=== PATIENT | female | born 1985 | race Caucasian/White ===

== ENCOUNTER 2019-12-13 08:55 | Day surgery (SDC) | payer OTHER ==
[~2019-12-13] VITALS: Ht 160 cm; Wt 44.0 kg
--- NOTE | 2019-12-13 10:13 | NUR ---
12/13/19 1013 Leonor Colon 1005 PATIENT ARRIVES TO PACU UNRESPONSIVE TO PAIN. RESP EVEN AND UNLABORED, ORAL AIRWAY IN PLACE, REQUIRES JAW THRUST BY RN. 1010 PATIENT CONTINUES TO BE UNRESPONSIVE TO PAIN. RESP EVEN AND UNLABORED, MASK CONTINUED AT [address]ERS[address] ORAL AIR[address]AY IN PLACE. NO LONGER REQUIRES JAW THRUST BY RN.
[2019-12-13] MEDS ORDERED: ACETAMINOPHEN500 MG PO (10:18)
[2019-12-13] MEDS ORDERED: IBUPROFEN600 MG PO (10:18)
[2019-12-13] MEDS ORDERED: OXYCODON-ACETA1 EAC2 PO (10:18)
--- NOTE | 2019-12-13 10:46 | NUR ---
PATIENT BACK TO ROOM 1040 BEDSIDE REPORT FROM LI VERDE. DRESSING TO RIGHT AXILLARY IS ACTICOAT WITH SMALL AMOUNT OF SHADOWING. PATIENT REPORTS NO PAIN OR NAUSEA. PROVIDED ICE WATER AND CRACKERS AND APPLESAUCE. PATIENT SITTING UP IN BED, APPEARS TO HAVE THE HICCUPS. NO OTHER NEEDS AT THIS TIME. CALL LIGHT WITHIN REACH.
--- NOTE | 2019-12-13 12:13 | NUR ---
PATIENT UP TOLERATING AMBULATING WELL, STATES " I JUST FEEL A LITTLE TIRED". VSS. NO NEW DRAINAGE TO SURGICAL SITE DRESSING. PROVIDED DISCHARGE INSTRUCTION. ANSWERED QUESTIONS AND CONCERNS. PROVIDED WHEELCHAIR RIDE TO FRONT. PATIENT TRANSFERED WELL TO CAR WITH . SCRIPT IN HUSBANDS HAND.
--- NOTE | 2019-12-14 14:49 | OR ---
[facility] [address] [place], [place] [address] Signed DATE OF OPERATION: 12/13/2019 SURGEON: Lisandra Michelel MD PREOPERATIVE DIAGNOSES: Mediastinal cervical and right axillary adenopathy suspicious for malignancy. POSTOPERATIVE DIAGNOSES: Mediastinal cervical and right axillary adenopathy suspicious for malignancy. PROCEDURE: Excision of deep right axillary lymph node (4 cm). ANESTHESIA: General LMA; [place] CRNA and local 10 mL of 0.25% Marcaine with epinephrine. INDICATION: This 34-year-old white woman is a patient of LILIANE Stoddard. She has been found to have significant axillary, cervical, and ultimately mediastinal adenopathy. CT scan confirms these findings. She has no "B" symptoms (night sweats, etc), no weight loss and no known family history of lymphoma. She is admitted at this time to undergo right axillary lymph node biopsy to assist in diagnosis. The risks of bleeding, infection, need for drain, axillary swelling or limbs swelling were all reviewed. She understands and wished to proceed. FINDINGS: The lymph node was easily identified. It was mobile and was approximately 4 cm in size. It was smooth and noninfiltrative. Sectioning the lymph node showed findings highly suggestive of lymphoma. DESCRIPTION OF PROCEDURE: The patient was brought to the operating room and given a general LMA type anesthetic. Preoperative antibiotic Ancef was given. Sequential compression device stockings were used and heparin subcutaneously administered. In the supine position with the right arm abducted, the axilla, chest wall, neck and so forth were prepared with a chlorhexidine solution. Palpation of the axilla demonstrated a large dominant lymph node in the apex of the axilla. A transverse incision was made in the axillary skin lateral to the pectoralis muscle. Dissection carried through the subcutaneous tissue with electrocautery and blunt dissection. With various manipulations, the lymph node was easily identified and mobilized and resected primarily with electrocautery. If there Electronically Signed By: LISANDRA MICHELLE MD 12/14/19 1449 PATIENT NAME: MARYA GREGORY OPERATIVE REPORT DATE OF : [birth year] REPORT #: [id number] PHYSICIAN: LISANDRA MICHELLE MD PCP: GERBER KEARNEY PA-C REPORT IS CONFIDENTIAL AND NOT TO BE RELEASED WITHOUT AUTHORIZATION [address] [address] Signed was no extensive disruption of surrounding soft tissue. The lymph node was bivalved on the back table and found to have appearance typical of lymphoma. Irrigation was undertaken. The wound was closed in layers with interrupted 2-0 Vicryl and running subcuticular 3-0 Vicryl for the skin. Steri-Strips were applied as was a silver sponge dressing. A 10 mL of 0.25% Marcaine with epinephrine had been injected locally for postoperative analgesic benefit. She was extubated and transferred from the operating room to recovery room in good condition. BLOOD LOSS: Minimal. MD SANKET Mackey/RUSSELL /[id number] cc: LILIANE Stoddard Copies: ~ Electronically Signed By: LISANDRA MICHELLE MD 12/14/19 1449 PATIENT NAME: MARYA GREGORY OPERATIVE REPORT DATE OF : [birth year] REPORT #: [id number] PHYSICIAN: LISANDRA MICHELLE MD PCP: GERBER KEARNEY PA-C REPORT IS CONFIDENTIAL AND NOT TO BE RELEASED WITHOUT AUTHORIZATION
--- NOTE | 2019-12-19 14:26 | PATH ---
[facility] [address] [facility] [place] [place] [address] Signed SPECIMEN(S): B B T CELL FLOW ONLY SPECIMEN(S): A RIGHT AXILLARY LYMPH NODE SPECIMEN SOURCE: A. RIGHT AXILLARY LYMPH NODE B. B T CELL FLOW ONLY CLINICAL HISTORY: Mediastinal lymphadenopathy. Right axillary lymph node tissue biopsy, 3.3 x 2.1 x 1.5. FINAL PATHOLOGIC DIAGNOSIS: A. Lymph node, right axilla, excisional biopsy: - Classic Hodgkin lymphoma, nodular sclerosis type. - See Comment. COMMENT: Sections demonstrate a lymph node with architectural effacement by vague nodules of mature-apperaing lymphocytes and scattered large, atypical tumor cells with vesicular nuclei, prominent nucleoli, and occasional binucleation, resembling Lei-Carmel cells. Fibrous bands are present coursing through the node parenchyma. Rare areas of necrosis are seen. Immunohistochemical stains (with appropriately staining controls) were performed and demonstrate the following: CD20: Negative in tumor cells CD45: Negative in tumor cells CD3: Negative in tumor cells, positive for T cell rosettes around tumor cells CD30: Postive in tumor cells CD15: Positive in tumor cells [place]-5: Weak positivity in tumor cells. The combined morphologic and immunophenotypic profile is compatible with classic Hodgkin lymphoma, nodular sclerosis type. As part of [facility]' Quality Improvement Program, this case was reviewed by another member of our pathology staff, Dr. Malina Delgado, Board Certified Hematopathologist. The results were discussed with Dr. Self on 12/19/2019. NAL:cml:C NR No evidence of non-Hodgkin lymphoma is detected in this specimen. Histologic correlation is needed for full interpretation and to evaluate for tumors not fully characterized by flow cytometry PATIENT NAME: MARYA GREGORY PATHOLOGY DATE OF : [birth year] REPORT #: [id number] PHYSICIAN: JEET PATHOLOGY PCP: GERBER KEARNEY PA-C REPORT IS CONFIDENTIAL AND NOT TO BE RELEASED WITHOUT AUTHORIZATION [facility] [address] [place], [place] [address] Signed analysis, including Hodgkin lymphoma and certain non-Hodgkin lymphoma, especially large cell lymphoma, and non-hematopoietic tumors. FLOW CYTOMETRY ANALYSIS: FLOW DIFFERENTIAL (% Total CD45 vs. SSC gating): Lymphoid 95%; Debris 4%. Cell Count: 2.4 x 10*3/uL. Total Viability: 97% POPULATION ANALYSIS: LYMPHOID CELLS: The lymphocyte gate comprises 95% of total events and includes 64% T-cells with a CD4:CD8 ratio of 8.1:1 and normal english T-cell antigen expression. 37% of lymphocytes are polyclonal B-cells with a kappa:lambda ratio of 1.4:1. The remainders are NK-cells. PLASMA CELLS: A significant plasma cell population is not detected in the neg-dimCD45/CD38 screening gate. ANTIBODIES USED: KAPPA, LAMBDA, CD20, CD10, CD19, CD23, CD38, FMC7, CD16, CD56, CD8, CD5, CD2, CD4, CD7, CD3, CD45, 7AAD: TOTAL ANTIBODIES USED: 18. DKW FLOW CYTOMETRY: Flow cytometry analysis, right axillary lymph node: - No atypical B or T-cell population is detected. See Comment. MICROSCOPIC EXAMINATION: Histologic sections of all submitted blocks are examined by light microscopy. These findings, together with the gross examination, support the pathologic diagnosis. GROSS DESCRIPTION: The specimen, labeled "SR," and designated on the requisition " right axilla lymph node tissue," is received in formalin and consists of a previously sectioned yellow-wakefield possible lymph node (3.6 x 1.9 x 1.8 cm) the skin surrounding yellow-wakefield adipose and soft tissue. The specimen is serially sectioned to reveal a pink-wakefield, slightly lobulated cut surface. The specimen is submitted entirely in cassettes (A1-A6). Per the requisition "received fresh is a previously incised 3.3 x 2.1 x 1.5 cm lymph node. Specimen is sectioned. Rep section submitted in RPMI, touch preps made, and rest submitted in formalin. Lymphoma protocol-no frozen," per Dr. Ladd. SONG (under the direct supervision of a pathologist) The Gross Description was prepared using a voice recognition system. The report was reviewed for accuracy; however, sound-alike word errors, addition PATIENT NAME: MARYA GREGORY PATHOLOGY DATE OF : [birth year] REPORT #: [id number] PHYSICIAN: JEET WILSON PCP: GERBER KEARNEY PA-C REPORT IS CONFIDENTIAL AND NOT TO BE RELEASED WITHOUT AUTHORIZATION [address] [address] Signed and/or deletions may occur. If there is any question about this report, please contact Client Services. ADDITIONAL NOTES: This test was developed and its performance characteristics determined by [facility]. It has not been cleared or approved by the US Food and Drug Administration. The FDA does not require this test to go through premarket FDA review. This test is used for clinical purposes. It should not be regarded as investigational or for research. This laboratory is certified under the Clinical Laboratory Improvement Amendments (CLIA) as qualified to perform high complexity clinical laboratory testing. Immunohistochemical and/or in situ hybridization studies were performed on this case with the appropriate positive controls that react as expected. This test was developed and its performance characteristics determined by [facility]. It has not been cleared or approved by the U.S. Food and Drug Administration. The FDA has determined that such clearance or approval is not necessary. This test is used for clinical purposes. It should not be regarded as investigational or for research. [facility] is certified under the Clinical Laboratory Improvement Amendments of 1988 (CLIA) as qualified to perform high complexity clinical laboratory testing. In this case, certain antibodies were performed by both immunohistochemistry and flow cytometry analysis because flow cytometry analysis did not fully explain all the light microscopic findings. Immunohistochemistry aided in the analysis. Both methods are deemed medically necessary in this case. PERFORMING LABORATORY: The technical component of flow cytometry was performed by [facility], [address] [place] [address] (Funeral Director And Embalmer: Denilson Chau D.O.; CLIA#: [id number]). Professional interpretation of flow cytometry was performed by [facility], [facility], [address] [place] [id number] (Funeral Director And Embalmer: Alex Lazcano M.D.; CLIA#: [id number]). IMAGES: A: [id number] A: [id number] FINAL DIAGNOSIS OF FLOW CYTOMETRY PERFORMED BY: Malina Delgado MD, Pathologist PATIENT NAME: MARYA GREGORY PATHOLOGY DATE OF : [birth year] REPORT #: [id number] PHYSICIAN: JEET WILSON PCP: GERBER KEARNEY PA-C REPORT IS CONFIDENTIAL AND NOT TO BE RELEASED WITHOUT AUTHORIZATION [facility] [address] [place], [place] [address] Signed Dec 14 2019 12:16PM The technical component was performed by [facility], [address] [place] [address] (Funeral Director And Embalmer: Teresita Jain MD; CLIA# [id number]). Professional interpretation was performed by [facility], [address] [address] (CLIA# [id number]). Diagnostician: Chloe Truong MD Pathologist Electronically Signed 12/19/2019 Copies: ~ PATIENT NAME: MARYA GREGORY PATHOLOGY DATE OF : [birth year] REPORT #: [id number] PHYSICIAN: JEET WILSON PCP: GERBER KEARNEY PA-C REPORT IS CONFIDENTIAL AND NOT TO BE RELEASED WITHOUT AUTHORIZATION
== END 2019-12-13 12:00 | disposition home or self-care (01) ==
LOC: OPS 08:55 → DS 08:55 → OPS 09:30 → DS 11:00 → OPS 12:00
PROVIDERS: Surgery
PROC: 07B50ZZ Excision of Right Axillary Lymphatic, Open Approach (ICD-10-PCS; principal; 2019-12-13 09:30)
DX: C81.14 Nodular sclerosis Hodgkin lymphoma, lymph nodes of axilla and upper limb (principal); Z91.09 Other allergy status, other than to drugs and biological substances
CPT/HCPCS: J0690; J1100; J1644; J1885; J2001; J2250; J2405; J2704; J3010; J7121

== ENCOUNTER 2020-01-10 09:58 | Day surgery (SDC) | payer OTHER ==
--- NOTE | ~2020-01-10 | OR ---
[facility] [address] [place], [place] [address] Draft DATE OF OPERATION: 01/10/2020 SURGEON: Lisandra Michelle MD PREOPERATIVE DIAGNOSIS: Hodgkin lymphoma with extensive mediastinal and neck adenopathy. POSTOPERATIVE DIAGNOSIS: Hodgkin lymphoma with extensive mediastinal and neck adenopathy. PROCEDURES: 1. Left subclavian Port-A-Cath placement (Bard port catheter). 2. Surgeon-directed fluoroscopy. ANESTHESIA: Local with monitored anesthesia care, Lisandra Estrada CRNA INDICATIONS: This 34-year-old white woman is a patient of LILIANE Stoddard. She has had increasing lymphadenopathy including the right neck, the mediastinum, and right axilla. She underwent right axillary lymph node biopsy by me confirming Hodgkin lymphoma. She has since seen Dr. Mcgregor, who has outlined a plan of chemotherapy for her. A Port-A-Cath is needed. The risks of bleeding, infection, pneumothorax, and complications related to the catheter itself were all reviewed with her as regard to Port-A-Cath placement. She understands and wished to proceed. Of note, Dr. Mcgregor is anticipating bone marrow biopsy at completion of the Port-A-Cath, and the patient will be in the operating room for that procedure of his. FINDINGS: Dark nonpulsatile blood was noted from the left subclavian vein. Catheter was placed without problem. It appears to have good function and is placed with the tip in the superior vena cava. DESCRIPTION OF PROCEDURE: The patient was brought to the operating room, placed in mild Trendelenburg position, given intravenous sedation by the product marketing specialist. Preoperative antibiotics were given. The neck and upper chest were prepared with a chlorhexidine solution and draped sterilely. The head was turned slightly to the right. She had extensive adenopathy of the right neck. She has a thin body habitus (BMI 15) and small clavicles. A 1% PATIENT NAME: MARYA GREGORY OPERATIVE REPORT DATE OF : [birth year] REPORT #: [id number] PHYSICIAN: LISANDRA MICHELLE MD PCP: RAFIQ MCGREGOR MD REPORT IS CONFIDENTIAL AND NOT TO BE RELEASED WITHOUT AUTHORIZATION [facility] [address] [place], [place] [address] Draft lidocaine was injected in the left infraclavicular space. Using a Seldinger technique, the left subclavian vein was easily accessed showing dark nonpulsatile blood. A flexible J-wire was passed down the needle. The needle was removed. Surgeon directed fluoroscopy was then undertaken showing the wire extending in a typical position into the right heart system. Local anesthetic was injected transversely over the left pectoral area. A transverse incision was made and using electrocautery and blunt dissection, a pocket was created over the left pectoralis muscle. An 11 blade was used to incise the skin at the exit site of the wire. A dilator was passed over the wire and removed and the dilator and peel-away sheath introducer passed over the wire. The wire and the dilator were removed showing dark retrograde nonpulsatile vigorous bleeding. The previously inspected Bard port Groshong kit type catheter previously irrigated, was passed through the sheath, stabilized and the sheath removed. Aspiration on the catheter showed dark nonpulsatile blood. Fluoroscopy was once again employed after placing the patient in a neutral position. Under fluoroscopic control, the catheter was withdrawn showing the tip to be in the superior vena cava. Extensive mediastinal adenopathy was noted. A port device had been partially secured to the pectoralis fascia. The catheter was tunneled from the insertion site to the port site with enclosed tunneling device and trimmed to the appropriate length. The catheter was attached to the catheter and secured within close collar device per manufacture's instructions. The port was then secured to the pectoralis fascia with the previously placed suture. Care was taken to avoid any kinking or malposition of the catheter in relation to the port on the chest wall. Aspiration through the port with angled James needle showed dark nonpulsatile blood and easy flushing with heparinized saline. The port site was closed with interrupted 2-0 Vicryl, and the skin closed with running subcuticular 3-0 Vicryl as was the left small neck and incision site. Steri-Strips were applied. Angled James needle was once again used to interrogate the port showing easy withdrawal of blood and easy flushing of heparinized saline. A silver sponge dressing was applied. It is now anticipated that Dr. Mcgregor will perform a bone marrow biopsy under the same anesthetic, we await for his arrival. PATIENT NAME: MARYA GREGORY OPERATIVE REPORT DATE OF : [birth year] REPORT #: [id number] PHYSICIAN: LISANDRA MICHELLE MD PCP: RAFIQ MCGREGOR MD REPORT IS CONFIDENTIAL AND NOT TO BE RELEASED WITHOUT AUTHORIZATION [address] [address] Draft iLsandra Michelle MD JM/MODL /[id number] cc: Rafiq Mcgregor MD Copies: RAFIQ MCGREGOR MD ~ PATIENT NAME: MARYA GREGORY OPERATIVE REPORT DATE OF : [birth year] REPORT #: [id number] PHYSICIAN: LISANDRA MICHELLE MD PCP: RAFIQ MCGREGOR MD REPORT IS CONFIDENTIAL AND NOT TO BE RELEASED WITHOUT AUTHORIZATION
[~2020-01-10 09:58] MED LIST: ACETAMINOPHEN500 MG PO; IBUPROFEN600 MG PO; OXYCODON-ACETA1 EAC2 PO
[2020-01-10] MEDS ORDERED: OXYCODON-ACETA1 EAC2 PO (12:07)
[2020-01-10] MEDS ORDERED: ACETAMINOPHEN500 MG PO (12:07)
[2020-01-10] MEDS ORDERED: IBUPROFEN600 MG PO (12:08)
--- NOTE | 2020-01-10 12:30 | NUR ---
01/10/20 1230 Sheets,Mitzy 1224 PT ARRIVED TO PACU ON 6L VIA MASK AND NASAL AND ORAL AIRWAY IN PLACE. VSS. PT NONAROUSABLE.
--- NOTE | 2020-01-10 13:41 | NUR ---
PATIENT TO DAYSURGERY FROM RECOVER, APPEARS DROWSY. ON 2 LITERS NC, BREATHING EASY. PATIENT STATES " I JUST FEEL LIKE I COULD SLEEP". VSS. TITRATED PATIENT OFF OF OXYGEN NOW 98% RA. PROVIDED ICE WATER AND CRACKERS, PATIENT AWAKE ON AND OFF. ANSWERED QUESTIONS AND CONCERNS. DRESSINGS INTACT TO LEFT SHOLDER. CALL LIGHT WITH IN REACH.
--- NOTE | 2020-01-10 13:55 | NUR ---
PT UPRIGHT IN BED, EATING CRACKERS AND APPLESAUCE.
--- NOTE | 2020-01-10 15:00 | NUR ---
PT TOLERATES PO WELL, DENIES NAUSEA. PT DOES NOT HAVE ANY PAIN. PT STATES "FEELS LIKE I AM SWIMMING." PT USES PHONE IN RM TO CALL SPOUSE. ENC TO USE CALL LIGHT WITH ANY NEEDS.
--- NOTE | 2020-01-10 15:55 | NUR ---
PT USES CALL LIGHT TO NOTIFY STAFF, ASKS THIS RN IF SHE CAN DC HOME. PT FEELING BETTER, NO LONGER DROWSY. PT UP TO BATHROOM WITH RN ASSIST, ABLE TO VOID 250 MLS WITH NO PROBLEMS. PT BACK TO , DC INSTRUCTIONS PRESENTED. PT PROVIDED PAIN PRESCRIPTION IN DC FOLDER. PT DC'S VIA WC TO PERSONAL VEHICLE WITH SPOUSE HOME.
--- NOTE | 2020-01-14 15:10 | PATH ---
[facility] [address] [place], [place] [address] Signed SPECIMEN(S): C COMP FLOW CYTOMETRY, BM EDTA SPECIMEN(S): A BONE MARROW - CORE SPECIMEN(S): B BONE MARROW - ASPIRATION CLINICAL HISTORY: 34-year-old female with very advanced classical Hodgkin's lymphoma. See attached. C81.90 (Hodgkin's lymphoma, unspecified, unspecified site) DIAGNOSIS SUMMARY: A. Peripheral blood, smear: - Moderate normochromic, microcytic anemia. B. Bone marrow, aspirate, clot section, and core biopsy: - No morphologic or immunophenotypic evidence of lymphoma; history of classic Hodgkin lymphoma. - Normocellular marrow with trilineage hematopoiesis. - Decreased stainable iron, no ring sideroblasts. - See Diagnostic Comment. 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 The current bone marrow biopsy demonstrates no morphologic or immunophenotypic evidence of involvement by lymphoma. Karyotype studies are pending, and results will be reported in an addendum. Of note, the patient shows a moderate microcytic anemia with a normal MCHC, minimally elevated RDW, and decreased stainable iron in the bone marrow. Correlation with serum iron studies (and hemoglobin electrophoresis if iron studies are within normal limits) may be pursued if clinically indicated. JC:caw PERIPHERAL BLOOD: HEMOGRAM (01/10/2020): WBC 8.5 K/uL, RBC 3.97 M/uL, HGB 10.1 g/dL, HCT 30.1%, MCV 75.9 fL, MCH 25 pg, MCHC 34 g/dL, RDW 15.1%, PLT 397 K/uL. MANUAL DIFFERENTIAL COUNT (100 cells, performed by a pathologist): Segmented neutrophils 60%, lymphocytes 30%, monocytes 6%, eosinophils 3%, basophils 1%. The red cells are moderately decreased in number and are normochromic and microcytic. There is mild nonspecific anisopoikilocytosis with a few scattered ovalocytes seen. Polychromasia is not significantly increased. Leukocytes are normal in number. No significant dysplastic features are seen in the neutrophils. Lymphocytes are predominantly PATIENT NAME: MARYA GREGORY PATHOLOGY DATE OF : 87 REPORT #: [id number] PHYSICIAN: JEET PATHOLOGY PCP: RAFIQ MCGREGOR MD REPORT IS CONFIDENTIAL AND NOT TO BE RELEASED WITHOUT AUTHORIZATION [facility] [address] [place], [place] [address] Signed small and mature. Circulating blasts are not identified. There is no significant monocytosis, eosinophilia or basophilia. Platelets are normal in number and demonstrate normal morphology. BONE MARROW: BONE MARROW ASPIRATE: The bone marrow aspirate smears demonstrate abundant cellular spicules. There is a mild increase in maturing myeloids in comparison to maturing erythroids. Myeloids demonstrate full-spectrum maturation. Erythroids also demonstrate full-spectrum maturation. Scattered plasma cells are seen as well, which appear mildly increased. Blasts are not increased. Megakaryocytes are seen scattered and show normal morphology. MANUAL DIFFERENTIAL COUNT (200 cells): Blasts 0.5%, promyelocytes 2%, myelocytes 16.5%, metamyelocytes 14%, segs/bands 25%, erythroids 20.5%, lymphocytes 9%, plasma cells 4.5%, monocytes 5%, eosinophils 2.5%, basophils 0.5%. BONE MARROW CORE BIOPSY AND ASPIRATE CLOT SECTION CELL BLOCK: The bone marrow core biopsy demonstrates a cellularity of approximately 60-70%, which is normocellular for age. The estimated M:E ratio is approximately 3-4:1. Myeloids and erythroids both demonstrate full-spectrum maturation. Scattered megakaryocytes are seen, without atypical features noted. Blasts are not increased. Scattered plasma cells and perivascular plasma cells are identified. Trabecular bone is normal. The bone marrow clot sections demonstrate numerous fragments of marrow with similar findings as the core biopsy. SPECIAL STAINS (with adequate controls): - Iron stain (aspirate smear): Stainable iron is present, appears decreased; no ring sideroblasts identified. - Iron stain (block B1): Stainable iron is detected; no ring sideroblasts identified. IMMUNOHISTOCHEMICAL STAINS (block A1): - CD30: Negative. - PAX-5: Positive in scattered small to intermediate size B-cells. - CD138: Positive in scattered and small perivascular clusters of plasma cells, approximately 5% of overall marrow cellularity. IMMUNOHISTOCHEMICAL STAINS (block B1): - CD30: Negative for large atypical cells, scattered cells with non-specific granular cytoplasmic staining seen. IN SITU HYBRIDIZATION STAINS (block A1): - [place]: Positive in scattered plasma cells, polytypic pattern. PATIENT NAME: MARYA GREGORY PATHOLOGY DATE OF : [birth year] REPORT #: [id number] PHYSICIAN: JEET WILSON PCP: RAFIQ MCGREGOR MD REPORT IS CONFIDENTIAL AND NOT TO BE RELEASED WITHOUT AUTHORIZATION [facility] [address] [place] [id number] Signed - Lambda: Positive in scattered plasma cells, polytypic pattern. JCH:caw FLOW CYTOMETRY: Bone marrow, flow cytometry: - No monotypic B-cell or aberrant T-cell population detected. - No increase in blasts. - See Comment. COMMENT: Flow cytometry of this bone marrow specimen demonstrates no evidence of an abnormal lymphocyte population. In addition, there is no increase in CD34 or CD117 positive blasts. Of note, flow cytometry is frequently negative in Hodgkin lymphomas, and as such, correlation with morphologic and clinical findings is recommended for full interpretation of these results. FLOW CYTOMETRY ANALYSIS: FLOW DIFFERENTIAL (% Total CD45 vs. SSC gating): Myeloid 84%; Lymphoid 4%; Monocyte 2%; Dim CD45/Blast: 1.3%. Cell Count: 7.1 x 10*3/uL. POPULATION ANALYSIS: BLASTS: Analysis of the dim CD45 gate demonstrates 1% myeloblasts and 4% hematogones. LYMPHOID CELLS: The lymphocyte gate comprises 4% of total events and includes 78% T-cells with a CD4:CD8 ratio of 0.6:1 and normal english T-cell antigen expression. 8% of lymphocytes are polytypic B-cells with a kappa:lambda ratio of 2.9:1. The remainders are NK-cells. MYELOID CELLS: The myeloid population comprises 84% of the total events. No aberrant or immature immunophenotypic expression is detected. MONOCYTES: The monocyte population comprises 2% of the total events. Monocytes are not increased. No aberrant immunophenotypic expression is detected. PLASMA CELLS: 0.5% plasma cells are detected in the screening gate neg-dimCD45/CD38. Plasma cells are CD45 dim and positive for CD19. ANTIBODIES USED: KAPPA, LAMBDA, CD20, CD10, CD19, CD23, CD38, FMC7, CD16, CD56, CD8, CD5, CD2, CD4, CD7, CD3, CD14, CD33, CD13, HLADR, CD34, CD117, CD15, CD45: TOTAL ANTIBODIES USED: 24. JNB/TCS FINAL DIAGNOSIS PERFORMED BY: Polly Vela MD, Jan 11 2020 1:38PM CYTOGENETICS: Pending, to be reported by addendum. PATIENT NAME: MARYA GREGORY PATHOLOGY DATE OF : [birth year] REPORT #: [id number] PHYSICIAN: JEET WILSON PCP: RAFIQ MCGREGOR MD REPORT IS CONFIDENTIAL AND NOT TO BE RELEASED WITHOUT AUTHORIZATION [facility] [address] [place], [place] [address] Signed GROSS DESCRIPTION: A. The specimen, labeled "Saul, bone core," is received in formalin and consists of two wakefield bone core fragments at 2.0 and 2.1 cm in greatest dimension. It is submitted in cassette (A1) following decalcification in Immunocal for 1.5 hours. B. The specimen, labeled "Saul, clot," is received in formalin and consists of a 1.3 x 1.1 x 0.2 cm aggregate of blood clot. It is submitted entirely in cassette (B1). TN (under the direct supervision of a pathologist) The Gross Description was prepared using a voice recognition system. The report was reviewed for accuracy; however, sound-alike word errors, addition and/or deletions may occur. If there is any question about this report, please contact Client Services. ADDITIONAL NOTES: This test was developed and its performance characteristics determined by [facility]. It has not been cleared or approved by the US Food and Drug Administration. The FDA does not require this test to go through premarket FDA review. This test is used for clinical purposes. It should not be regarded as investigational or for research. This laboratory is certified under the Clinical Laboratory Improvement Amendments (CLIA) as qualified to perform high complexity clinical laboratory testing. Immunohistochemical and/or in situ hybridization studies were performed on this case with the appropriate positive controls that react as expected. This test was developed and its performance characteristics determined by [facility]. It has not been cleared or approved by the U.S. Food and Drug Administration. The FDA has determined that such clearance or approval is not necessary. This test is used for clinical purposes. It should not be regarded as investigational or for research. [facility] is certified under the Clinical Laboratory Improvement Amendments of 1988 (CLIA) as qualified to perform high complexity clinical laboratory testing. In this case, certain antibodies were performed by both immunohistochemistry and flow cytometry analysis because flow cytometry analysis did not fully explain all the light microscopic findings. Immunohistochemistry aided in the analysis. Both methods are deemed medically necessary in this case. PATIENT NAME: MARYA GREGORY PATHOLOGY DATE OF : [birth year] REPORT #: [id number] PHYSICIAN: JEET WILSON PCP: RAFIQ MCGREGOR MD REPORT IS CONFIDENTIAL AND NOT TO BE RELEASED WITHOUT AUTHORIZATION [facility] [address] [facility] [place], [place] [address] Signed PERFORMING LABORATORY: The professional interpretation was performed by [facility], [address] [place] [address] (Special Events Driver: Denilson Chau D.O.; CLIA#: [id number]). Professional interpretation was performed by [facility], [address] [place] [address] (Special Events Driver: Denilson Chau D.O.; CLIA#: [id number]). IMAGES: [id number]: [id number] A: [id number] Diagnostician: oPlly Vela MD Pathologist Electronically Signed 01/14/2020 Copies: ~ PATIENT NAME: MARYA GREGORY PATHOLOGY DATE OF : [birth year] REPORT #: [id number] PHYSICIAN: JEET WILSON PCP: RAFIQ MCGREGOR MD REPORT IS CONFIDENTIAL AND NOT TO BE RELEASED WITHOUT AUTHORIZATION
== END 2020-01-10 16:29 | disposition home or self-care (01) ==
LOC: DS 09:58 → OPS 09:58 → DS 10:45 → OPS 11:30 → DS 11:30 → OPS 16:29
PROVIDERS: Specialist; Surgery
PROC: 0JH63WZ Insertion of Totally Implantable Vascular Access Device into Chest Subcutaneous Tissue and Fascia, Percutaneous Approach (ICD-10-PCS; 2020-01-10)
PROC: 05H633Z Insertion of Infusion Device into Left Subclavian Vein, Percutaneous Approach (ICD-10-PCS; 2020-01-10)
PROC: B517ZZA Fluoroscopy of Left Subclavian Vein, Guidance (ICD-10-PCS; 2020-01-10)
PROC: 07DR3ZX Extraction of Iliac Bone Marrow, Percutaneous Approach, Diagnostic (ICD-10-PCS; principal; 2020-01-10 11:30)
PROC: 079T3ZX Drainage of Bone Marrow, Percutaneous Approach, Diagnostic (ICD-10-PCS; 2020-01-10 11:30)
DX: C81.94 Hodgkin lymphoma, unspecified, lymph nodes of axilla and upper limb (principal); D50.9 Iron deficiency anemia, unspecified; Z91.09 Other allergy status, other than to drugs and biological substances
CPT/HCPCS: 00532; 71045; 77001; 80053; 82232; 83615; 85025; 85651; C1788; J0690; J1100; J1644; J1885; J2250; J2405; J2704; J2765; J3010; J7121

== ENCOUNTER 2020-01-24 23:27 | Emergency (ER) | payer OTHER ==
[~2020-01-24] VITALS: Ht 160 cm; Wt 44.0 kg
[2020-01-24] MEDS ORDERED: VINBLASTIN10 MG/10 M IV (23:44)
[2020-01-24] MEDS ORDERED: DACARBAZINE IV (23:44)
[2020-01-24] MEDS ORDERED: DOXORUBICIN2 MG/1 ML (23:44)
[2020-01-24] MEDS ORDERED: ADCETRIS50 MG IV (23:45)
== END 2020-01-25 02:18 | disposition home or self-care (01) ==
LOC: ED 23:27
DX: K12.31 Oral mucositis (ulcerative) due to antineoplastic therapy (principal); Z91.041 Radiographic dye allergy status; Z79.899 Other long term (current) drug therapy
CPT/HCPCS: 80053; 85025; 96374; 96375; 99284-25; J1170; J2405; J7030

== ENCOUNTER 2020-02-02 09:18 | Emergency (ER) | payer OTHER ==
[~2020-02-02] VITALS: Ht 160 cm; Wt 42.2 kg
[~2020-02-02 09:18] MED LIST changes: +ADCETRIS50 MG IV; +DACARBAZINE IV; +DOXORUBICIN2 MG/1 ML; +VINBLASTIN10 MG/10 M IV
--- OUTSIDE RECORDS SUMMARY | 2020-02-02 09:20 | XMS ---
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 [facility] has no Care Guidelines for this patient. [place] VISIT COUNT (12 MO.) 2 [facility] [place]. TOTAL 2 NOTE: Visits indicate total known visits. ED/UCC VISIT TRACKING (12 MO.) 02/02/2020 09:[address] [facility] [place] TYPE: Emergency COMPLAINT: - CONSTIPATION 01/24/2020 23:28 [facility] [place] TYPE: Emergency COMPLAINT: - DIFFICULTY BREATHING DIAGNOSES: - Oral mucositis (ulcerative) due to antineoplastic therapy - Oral mucositis (ulcerative) due to antineoplastic therapy - Radiographic dye allergy status - Other equipment operator intermodal yard (current) drug therapy INPATIENT VISIT TRACKING (12 MO.) No inpatient visits to display in this time frame [email or web address]
[2020-02-02] MEDS ORDERED: METOCLOPRAMIDE H5 MG PO (09:35)
[2020-02-02] MEDS ORDERED: UDENYCA IM (09:37)
[2020-02-02] MEDS ORDERED: ZOLADEX3.6 MG SUB-Q (09:38)
--- NOTE | 2020-02-04 17:50 | PATH ---
[facility] [address] [facility] [place], [place] [address] Signed ORDERING PHYSICIAN: Saji Boo MD PATIENT NAME: MARYA GREGORY GENDER: F : 1985 SPECIMEN(S): No Source Given MOLECULAR PATHOLOGY RESULTS: SARS-CoV-2 Not Detected ADDITIONAL NOTES.: The [employer] Fusion SARS-CoV-2 Assay is a multiplex real-time PCR (RT-PCR) in vitro diagnostic test intended for the qualitative detection of RNA from SARS-CoV-2 from individuals who meet COVID-19 clinical and/or epidemiological criteria. In general, SARS-CoV-2 RNA can be detected during the acute phase of infection. Positive results indicate the presence of SARS-CoV-2 RNA. Clinical correlation with patient history and other diagnostic information is necessary to determine patient infection status. Positive results do not rule out bacterial infection or co-infection with other viruses. Negative results do not preclude SARS-CoV-2 infection and should not be used as the sole basis for patient management decisions. Negative results must be combined with other clinical observations, patient history, and epidemiological information. The Eaton Fusion SARS-CoV-2 Assay is not yet approved or cleared by the [place] FDA. When there are no FDA-approved or cleared tests available, and other criteria are met, FDA can make tests available under an emergency access mechanism called an Emergency Use Authorization (EUA). The EUA for this test is supported by the [place] of Health and Human Service's (HHS's) declaration that circumstances exist to justify the emergency use of in vitro diagnostics for the detection and/or diagnosis of the virus that causes COVID-19. This EUA will remain in effect for the duration of the COVID-19 declaration justifying emergency of IVDs, unless it is terminated or revoked by FDA, after which the test may no longer be used. The [employer] Fusion SARS-CoV-2 Assay is for use only under EUA in US laboratories certified under the Clinical Laboratory Improvement Amendments of 1988 (CLIA) to perform high complexity tests. [facility] is certified under CLIA to perform high complexity PATIENT NAME: MARYA GREGORY PATHOLOGY DATE OF : [birth year] REPORT #: [id number] PHYSICIAN: JEET PATHOLOGY PCP: GERBER KEARNEY PA-C REPORT IS CONFIDENTIAL AND NOT TO BE RELEASED WITHOUT AUTHORIZATION [address] [place], [place] [address] Signed clinical laboratory testing. PERFORMING LABORATORY.: Molecular testing was performed by [facility] [place] [address] (Therapeutic Recreation Assistant: Denilson Chau D.O.; CLIA#: [id number]) Diagnostician: System Interface Pathologist Electronically Signed 02/04/2020 Copies: ~ PATIENT NAME: MARYA GREGORY PATHOLOGY DATE OF : [birth year] REPORT #: [id number] PHYSICIAN: JEET WILSON PCP: GERBER KEARNEY PA-C REPORT IS CONFIDENTIAL AND NOT TO BE RELEASED WITHOUT AUTHORIZATION
== END 2020-02-02 15:59 | disposition home or self-care (01) ==
LOC: ED 09:18
DX: K59.00 Constipation, unspecified (principal); R50.9 Fever, unspecified; E87.1 Hypo-osmolality and hyponatremia; R21 Rash and other nonspecific skin eruption; Z91.041 Radiographic dye allergy status; Z79.899 Other long term (current) drug therapy
CPT/HCPCS: 71046; 80053; 81001; 83605; 84703; 85025; 96361; 96374; 99283-25; C9803; J7030